=== PATIENT | female | born 1940 | race Caucasian/White ===

== ENCOUNTER → 2016-10-01 | Day surgery (SDC) | payer MEDICARE, OTHER ==
[~2016-10-01] MED LIST: ALENDRONATE SOD70 M1 PO; COZAAR100 MG PO; FLONASE 0.05% N16 G1; GENERLAC PO; LOSARTAN/POTASSIUM; NASONEX17 GM; NIFEDIAC CC60 MG PO; NIFEDIPINE ER60 M1 PO; NIFEDIPINE PO; OMEPRAZOLE20 M1 PO; PENTASA250 MG PO; VIT D PO
--- NOTE | ~2016-10-01 | OR ---
Unit #: [id number] #: [id number] Patient: FERCHO CAMACHO [id number] [address] [address] [id number] MR#: [id number] NAME: FERCHO CAMACHO ROOM: Date of Procedure: 10/01/2016 Admission Date: 10/01/2016 Surgeon: Vasile Bocanegra M.D. : 1940 Attending Physician: Vasile Bocanegra M.D. Primary Care Physician: Sreedhar Mosqueda M.D. OPERATIVE REPORT PROCEDURE PERFORMED Colonoscopy to cecum with snare polypectomy and biopsy. INDICATIONS FOR PROCEDURE The patient with history of ulcerative colitis, undergoing colonoscopy for surveillance. MEDICATIONS Monitored anesthesia. POSTOPERATIVE FINDINGS 1. 5 mm polyp, transverse colon, snared and sent for histopathology. 2. Colonic mucosa, normal on the right side. Random biopsy was taken. 3. Left side shows minimal inflammation in the rectum and sigmoid. Biopsy was taken separately from this area. PLAN Continue with current treatment. Follow up on the pathology report. Repeat colonoscopy in 2 to 3 years. DESCRIPTION OF PROCEDURE The patient was explained of the procedure, risks, and benefits along with risks and benefits of anesthesia. She was brought to the endoscopy room. Propofol anesthesia was given. Rectal exam was done, which was normal. Colonoscopy was lubricated, passed up the rectum, advanced under direct vision all the way to the cecum. Cecum was identified by ileocecal valve and appendiceal orifice. Findings have been described above. Biopsies were taken. I retroflexed in the rectum, small hemorrhoids seen. The scope was gently pulled out. She tolerated it well. No major complications seen. Dictated by... Yanci Valiente/odilia TD: 10/01/2016 18:08 JOB #: [id number] Unit #: [id number] #: [id number] Patient: FERCHO CAMACHO OPERATIVE REPORT Page 1 of 1 X Vasile Bocanegra MD PROCEDURE OPERATIVE NOTE
== END | disposition home or self-care (01) ==
LOC: COPS 07:42
DX: Z12.11 Encounter for screening for malignant neoplasm of colon (principal); K52.9 Noninfective gastroenteritis and colitis, unspecified; K64.9 Unspecified hemorrhoids; K21.9 Gastro-esophageal reflux disease without esophagitis; K62.89 Other specified diseases of anus and rectum; K51.90 Ulcerative colitis, unspecified, without complications; I10 Essential (primary) hypertension; M19.90 Unspecified osteoarthritis, unspecified site; J43.9 Emphysema, unspecified; Z88.2 Allergy status to sulfonamides; Z98.890 Other specified postprocedural states
CPT/HCPCS: 88305